=== PATIENT | female | born 1965 | race Caucasian/White ===

== ENCOUNTER 2016-10-02 05:42 | Day surgery (SDC) | payer OTHER ==
[~2016-10-02] VITALS: Ht 154.9 cm; Wt 65.8 kg
[~2016-10-02 05:42] MED LIST: IBUP-1542 PO
[2016-10-02 06:29] VITALS: Ht 154.9 cm; Wt 65.8 kg
[2016-10-02] MEDS ORDERED: LEVO125T75 PO (06:41)
[2016-10-02 07:03] VITALS: BP 119/68; PULSE 58; RESP 12
[2016-10-02] MEDS ORDERED: FENTAnyl 50 MCG/ML VIAL ONE (07:39)
[2016-10-02] MEDS ORDERED: MIDAZOLAM 1 MG/ML 2 ML INJ ONE ×2 (07:39)
[2016-10-02 08:00] VITALS: BP 101/59; PULSE 54; RESP 20
--- NOTE | 2016-10-02 14:07 | GILP ---
DATE OF PROCEDURE: NAME OF PROCEDURES: Esophagogastroduodenoscopy and biopsy. SURGEON: Vanessa Goodson MD PREOPERATIVE DIAGNOSIS: Abdominal pain. POSTOPERATIVE DIAGNOSES: 1. Gastritis. 2. Biopsy for H pylori was positive. INDICATION FOR THE PROCEDURE: Ms. Cele Arenas is a 51-year-old female patient who had upper abdom inal pain, not responding to therapy. The patient was scheduled for endoscopic examination for furt her evaluation. The procedure and possible complications were well explained to the patient, she understood and cons ented to the procedure. DESCRIPTION OF PROCEDURE: Under the influence of fentanyl and Versed, the gastroscope was carefully introduced into the esophagus and under direct vision, it was advanced to the stomach and through t he pylorus into the duodenal bulb and descending duodenum. FINDINGS: ESOPHAGUS: The esophageal mucosa was normal. STOMACH: The patient had gastritis. Gastric mucosal biopsies were taken for H. pylori test and it was positive. DUODENUM: Normal. The patient tolerated the procedure very well and there was no complication from the procedure. At the end of the procedure, she was awake with stable vital signs and she was discharged home to the [facility] of her family. IMPRESSION: Helicobacter pylori gastritis. PLAN: 1. Omeprazole 40 mg p.o. b.i.d. for 14 days. 2. Doxycycline 100 mg p.o. b.i.d. for 14 days. 3. Flagyl 500 mg p.o. b.i.d. for 14 days. 4. Pepto-Bismol 2 tablets p.o. q.i.d. for 14 days. Dictated By: VANESSA DORAN/IRENE Conf#: [id number] DID#: [id number]
== END 2016-10-02 10:12 | disposition home or self-care (01) ==
LOC: GIL 05:42
PROVIDERS: ATTEND Internal Medicine Gastroenterology
DX: K29.70 Gastritis, unspecified, without bleeding (principal); B96.81 Helicobacter pylori [H. pylori] as the cause of diseases classified elsewhere
CPT/HCPCS: 43239; 84703; 87081; J2250; J3010; Z7610

== ENCOUNTER 2016-12-12 06:32 | Day surgery (SDC) | payer OTHER ==
[~2016-12-12] VITALS: Ht 147.3 cm; Wt 64.5 kg
[~2016-12-12 06:32] MED LIST changes: -IBUP-1542 PO; +LEVO125T75 PO
[2016-12-12 08:07] VITALS: Ht 147.3 cm; Wt 64.5 kg
[2016-12-12 08:31] VITALS: BP 119/66; PULSE 55; RESP 18
--- NOTE | 2016-12-12 09:40 | OPPN ---
Date/Time of Note Date/Time of Note DATE: 12/12/16 TIME: 09:38 Operative Report Free Text/Dictation Preoperative Diagnosis: Screening colonoscopy Postoperative Diagnosis: Internal hemorrhoid Procedure Performed: Colonoscopy Provider: Dr. Vanessa Starr Anesthesia: Moderate sedation Estimated Blood Loss: none Specimens: None Complications: none VANESSA STARR MD Dec 12, 2016 09:40
[2016-12-12] MEDS ORDERED: MIDAZOLAM 1 MG/ML 2 ML INJ ONE ×2 (09:42)
[2016-12-12] MEDS ORDERED: FENTAnyl 50 MCG/ML VIAL ONE (09:42)
[2016-12-12 10:01] VITALS: BP 102/70; PULSE 57; RESP 12
--- NOTE | 2016-12-12 11:41 | GILP ---
DATE OF PROCEDURE: 12/12/2016 PROCEDURE: Colonoscopy. PREOPERATIVE DIAGNOSIS: Screening colonoscopy. POSTOPERATIVE DIAGNOSES: 1. Colonoscopy all the way to the cecum. 2. Internal hemorrhoids. 3. No colon neoplasm was identified. SURGEON: Jemima Goodson MD INDICATION: Ms Cele Mensah is a 51-year-old female patient who was scheduled for screening colonoscopy. The procedure and possible complications were well explained to the patient. The patient understood and consented to the procedure. DESCRIPTION OF PROCEDURE: Under the influence of fentanyl and Versed, the colonoscope was carefully introduced in the rectum. Under direct vision it was advanced all the way to the cecum. Findings: The patient had internal hemorrhoids. No colon neoplasm was identified. She tolerated the procedure very well. There is no complications from the procedure. At the end of procedure she was awake with stable vital signs and she was discharged home in care of her family. IMPRESSION: 1. Colonoscopy all the way to the cecum. 2. Internal hemorrhoids. 3. No colon neoplasm was identified. PLAN: Next screening colonoscopy in 10 years. Dictated By: MD ANDREEA Mckeon/kelly/jane /Document#: [id number]
== END 2016-12-12 14:42 | disposition home or self-care (01) ==
LOC: GIL 06:32
PROVIDERS: ATTEND Internal Medicine Gastroenterology
DX: Z12.11 Encounter for screening for malignant neoplasm of colon (principal); K64.8 Other hemorrhoids
CPT/HCPCS: 45378; 84703; J2250; J3010; Z7610